=== PATIENT | female | born 1990 | race African-American/Black ===

== ENCOUNTER 2022-08-21 13:23 | Emergency (ER) | payer OTHER ==
[2022-08-21 13:29] VITALS: BP 102/57; PULSE 94; RESP 18; TEMP 99; BMI 23.0
[2022-08-21] MEDS ORDERED: SODIUM CHLORIDE 0.9% 500 ML INFUS.BAG IV ONE (14:03)
[2022-08-21] MEDS ORDERED: METOCLOPRAMIDE HCL INJECTION 10 MG/2 ML VIAL IVPUSH ONE (14:03)
[2022-08-21] MEDS ORDERED: ACETAMINOPHEN 1000 MG/100 ML BAG IVPB ONE (14:39)
[2022-08-21] MEDS ORDERED: FAMOTIDINE 20 MG/50 ML IVPB 20 MG/50 ML MG IVPB ONE ×2 (14:39→15:31)
[2022-08-21] MEDS ORDERED: ACETAMINOPHEN INJECTION 100 ML IVPB ONE (14:53)
[2022-08-21] MEDS ORDERED: METOCLOPRAMIDE HCL INJECTION 10 MG/2 ML VIAL ONE (14:53)
[2022-08-21 15:05] LABS: EOS % 0.2 % (0-4.5); HEMATOCRIT 38.4 % (32.4-45.2); HEMOGLOBIN 12.7 GM/dL (10.7-15.3); LYMPH % 12.3 % (8-40); MCHC 33.2 g/dl (32.0-36.0); MEAN CELL VOLUME 87.5 fl (80-96); MEAN PLT VOLUME 8.9 fl (7.5-11.1); NEUT % 79.5 % (42.8-82.8); PLATELET COUNT 271 10^3/uL (134-434); RBC 4.38 M/mm3 (3.60-5.2); RDW 12.1 % (11.6-15.6); WHITE BLOOD COUNT 6.3 K/mm3 (4.0-10.0)
[2022-08-21 15:06] LABS: URINE APPEARANCE CLEAR; URINE BILIRUBIN NEGATIVE (NEGATIVE); URINE COLOR YELLOW; URINE GLUCOSE (UA) NEGATIVE (NEGATIVE); URINE KETONE 3+ (NEGATIVE); URINE LEUK ESTERASE NEGATIVE (NEGATIVE); URINE NITRITE NEGATIVE (NEGATIVE); URINE PROTEIN TRACE (NEGATIVE)
[2022-08-21 15:20] LABS: POTASSIUM 4.2 mmol/L (3.5-5.1)
[2022-08-21 15:22] LABS: CALCIUM 9.5 mg/dL (8.5-10.1)
[2022-08-21 15:23] LABS: BLOOD UREA NITROGEN 7.5 mg/dL (7-18)
[2022-08-21 15:26] LABS: CREATININE 0.6 mg/dL (0.55-1.3)
[2022-08-21 15:27] LABS: BILIRUBIN,TOTAL 0.5 mg/dL (0.2-1)
[2022-08-21 15:28] LABS: TOT PROT 7.8 g/dl (6.4-8.2)
== END 2022-08-21 19:05 | disposition home or self-care (01) ==
LOC: JER 13:23
PROC: 3E033GC Introduction of Other Therapeutic Substance into Peripheral Vein, Percutaneous Approach (ICD-10-PCS; principal; 2022-08-21)
PROC: 3E033NZ Introduction of Analgesics, Hypnotics, Sedatives into Peripheral Vein, Percutaneous Approach (ICD-10-PCS; 2022-08-21)
PROC: 3E033GC Introduction of Other Therapeutic Substance into Peripheral Vein, Percutaneous Approach (ICD-10-PCS; 2022-08-21)
DX: O26.891 Other specified pregnancy related conditions, first trimester (principal); R10.84 Generalized abdominal pain; O41.8X10 Other specified disorders of amniotic fluid and membranes, first trimester, not applicable or unspecified; O34.11 Maternal care for benign tumor of corpus uteri, first trimester; D21.9 Benign neoplasm of connective and other soft tissue, unspecified; O21.9 Vomiting of pregnancy, unspecified; O34.81 Maternal care for other abnormalities of pelvic organs, first trimester; N83.201 Unspecified ovarian cyst, right side; Z3A.01 Less than 8 weeks gestation of pregnancy
CPT/HCPCS: 36415; 76815; 76817-TC; 80053; 81003; 83690; 84702; 84703; 85025; 86850; 86900; 86901; 87086; 99284-25